=== PATIENT | male | born 1980 | race African-American/Black ===

== ENCOUNTER 2020-09-29 16:41 | Emergency (ER) | payer OTHER ==
[~2020-09-29] VITALS: Ht 180.3 cm; Wt 113.0 kg
[2020-09-29 17:50] VITALS: BP 120/76
== END 2020-09-29 17:50 | disposition home or self-care (01) ==
LOC: ER 16:41
DX: B34.9 Viral infection, unspecified (principal); Z20.822 Contact with and (suspected) exposure to COVID-19
CPT/HCPCS: 99283; C9803; U0003; U0005